=== PATIENT | male | born 1985 | race Caucasian/White ===

== ENCOUNTER 2018-12-17 03:58 | Emergency (ER) | payer SELFPAY ==
[2018-12-17] MEDS ORDERED: IPRATROPIUM/ALBUTEROL 0.5-2.5 MG/3 ML AMPUL NEB ONE ×2 (04:45→04:50)
[2018-12-17] MEDS ORDERED: PREDNISONE 20 MG TABLET PO ONE (04:46)
[2018-12-17] MEDS ORDERED: IBUPROFEN 800 MG TABLET PO ONE (04:50)
--- NOTE | 2018-12-17 05:51 | RADIOLOGY REPORT (SQ) ---
EXAM DESCRIPTION: X-ray two view chest. CLINICAL HISTORY: 33 years Male, sob COMPARISON: None. TECHNIQUE: PA and Lateral views of the chest performed on 12/17/2018 at 5:21 AM FINDINGS: The lungs are well expanded and are clear. The costophrenic sulci are clear. There is no evidence of a pneumothorax. The cardiac silhouette is normal in size. The mediastinal contours are normal. No acute osseous abnormalities are identified. No focal soft tissue abnormalities are identified. IMPRESSION: No evidence of acute intrathoracic disease.
--- NOTE | 2018-12-17 06:04 | ER Document Report ---
ED Respiratory Problem - General Chief Complaint: Breathing Difficulty Stated Complaint: DIFFICULTY BREATHING Time Seen by Provider: 12/17/18 04:45 Primary Care Provider: [facility] [Provider Group] - Follow up as needed [facility] [Provider Group] - Follow up as needed Notes: Patient is a 33-year-old male history of asthma presents to the emergency department for cough, congestion, shortness of breath for the last "couple of weeks." Patient voices he ran out of his albuterol inhaler. States this evening he had increase in respiratory distress which is why he presents to the emergency room. Patient voices general anterior chest pain only when he takes a deep breath or coughs. Patient denies any fever. - Related Data Allergies/Adverse Reactions: No Known Allergies Allergy (Unverified 12/17/18 04:10) Past Medical History - General Information source: Patient - Social History Smoking Status: Current Every Day Smoker Family History: Reviewed & Not Pertinent Patient has suicidal ideation: No Patient has homicidal ideation: No Review of Systems - Review of Systems Constitutional: denies: Fever EENT: See HPI Cardiovascular: See HPI Respiratory: See HPI Gastrointestinal: No symptoms reported Genitourinary: No symptoms reported Male Genitourinary: No symptoms reported Musculoskeletal: No symptoms reported Skin: No symptoms reported Hematologic/Lymphatic: No symptoms reported Neurological/Psychological: No symptoms reported Physical Exam - Vital signs Vitals: Temp Pulse Resp BP Pulse Ox 97.9 F 99 18 139/80 H 95 12/17/18 04:03 12/17/18 04:03 12/17/18 04:03 12/17/18 04:03 12/17/18 04:03 - Notes Notes: GENERAL: Alert, interacts well. No acute distress. HEAD: Normocephalic, atraumatic. EYES: Pupils equal, round, and reactive to light. Extraocular movements intact. ENT: Oral mucosa moist, tongue midline. Nares patent, TM's intact, nonerythematous, nonbulging bilaterally. Pharynx within normal limits no palatal petechiae noted. NECK: Full range of motion. Supple. Trachea midline. LUNGS: Inspiratory and expiratory wheeze to auscultation bilaterally, no discernible rales, or rhonchi. HEART: Regular rate and rhythm. No murmur ABDOMEN: Soft, non-tender. Non-distended. Bowel sounds present in all 4 quadrants. EXTREMITIES: Moves all 4 extremities spontaneously. No edema, normal radial and dorsalis pedis pulses bilaterally. No cyanosis. BACK: no cervical, thoracic, lumbar midline tenderness. No saddle anesthesia, normal distal neurovascular exam. NEUROLOGICAL: Alert and oriented x3. Normal speech. cranial nerves II through XII grossly intact. PSYCH: Normal affect, normal mood. SKIN: Warm, dry, normal turgor. No rashes or lesions noted. Course - Re-evaluation Re-evalutation: 12/17/18 06:02 Chest X-Ray 12/17/18 04:45 IMPRESSION: No evidence of acute intrathoracic disease. Patient has been treated with breathing treatments, steroids and Motrin in the emergency department. His lung sounds have much improved. Patient now denies any respiratory distress or anterior chest wall pain. Discussed with patient negative chest x-ray need to follow-up outpatient with primary care provider. We have refill albuterol inhaler and nebulizer treatments. Steroids for the next 5 days. Patient stable for discharge. - Vital Signs Vital signs: Temp Pulse Resp BP Pulse Ox 97.9 F 99 13 139/80 H 96 12/17/18 04:03 12/17/18 04:03 12/17/18 05:00 12/17/18 04:03 12/17/18 05:00 Discharge - Discharge Clinical Impression: Upper respiratory infection Qualifiers: URI type: unspecified viral URI Qualified Code(s): J06.9 - Acute upper respiratory infection, unspecified Asthma Qualifiers: Asthma severity: mild Asthma persistence: unspecified Asthma complication type: with acute exacerbation Qualified Code(s): J45.901 - Unspecified asthma with (acute) exacerbation Condition: Stable Disposition: HOME, SELF-CARE Instructions: Asthma ([facility]), Upper Respiratory Illness ([facility]) Additional Instructions: As we discussed you have been seen and treated in the emergency department for an exacerbation of your asthma and an upper respiratory infection. Upper respiratory infections are typically caused by viruses. They do not respond to antibiotics. Please use your albuterol inhaler every 4 hours for the next 3 days, take steroids as prescribed. Please follow-up with your primary care provider in the next 24 to 48 hours. Return to the emergency room for any concerns. Prescriptions: Prednisone [Deltasone 20 mg Tablet] 3 tab PO DAILY 5 Days tablet Albuterol Sulfate [Proair HFA Inhalation Aerosol 8.5 gm MDI] 2 puff IH Q4H PRN #1 mdi PRN Reason: Albuterol Sulfate [Proair HFA Inhalation Aerosol 8.5 gm MDI] 2 puff IH Q4H PRN #1 mdi PRN Reason: Albuterol Sulfate [Ventolin 0.083% Neb 2.5 mg/3 mL Ampul] 1 vial NEB Q4 #60 vial Referrals: [facility] [Provider Group] - Follow up as needed [facility] [Provider Group] - Follow up as needed
[2018-12-17] MEDS ORDERED: ALBUTEROL SULFATE HFA (90 MCG/PUFF) 8 GM MDI (1 MDI/ER DISP) IH ONE (06:05)
[2018-12-17 06:27] VITALS: BP 120/72
== END 2018-12-17 07:15 | disposition home or self-care (01) ==
LOC: ER 03:58
DX: J06.9 Acute upper respiratory infection, unspecified (principal); J45.901 Unspecified asthma with (acute) exacerbation; R05 Cough; R09.81 Nasal congestion; R06.02 Shortness of breath; F17.200 Nicotine dependence, unspecified, uncomplicated
CPT/HCPCS: 71046; J7512; J3490; J7620; 94640; 99284